=== PATIENT | male | born 1965 | race African-American/Black ===

== ENCOUNTER 2017-09-23 08:48 | Emergency (ER) | payer SELFPAY ==
[2017-09-23] MEDS ORDERED: Adacel (T-DAP) 0.5 ML VIAL ONE (09:01)
[2017-09-23] MEDS ORDERED: Bacitracin Zinc 1 Packet ONE (09:04)
== END 2017-09-23 09:23 | disposition home or self-care (01) ==
LOC: NAV ERS 08:48
DX: S71.112A Laceration without foreign body, left thigh, initial encounter (principal); I10 Essential (primary) hypertension; F17.210 Nicotine dependence, cigarettes, uncomplicated; W45.8XXA Other foreign body or object entering through skin, initial encounter
CPT/HCPCS: 90471; 90715

== ENCOUNTER 2025-11-13 11:43 | Emergency (ER) | payer SELFPAY ==
[~2025-11-13 11:43] MED LIST: Iopamidol 370 76% 100 ML VIAL ONE
[2025-11-13 12:24] LABS: INR-International Normal Ratio 0.9; PTT 23.7 sec (22.9-36.1); Prothrombin Time 12.5 sec (12.0-14.7)
[2025-11-13 12:33] LABS: Troponin I 0.017 ng/mL (< 0.028)
[2025-11-13 12:40] LABS: Bicarbonate (HCO3v) 24.7 mmol/L (22.0-28.0); CO2 Tension (PvCO2) 40.2 mmHg (42.0-51.0); Calcium, Ionized 1.21 mmol/L (1.15-1.33); Chloride 105 mmol/L (98-107); Hemoglobin - Calc 16.6 g/dL (14.0-18.0); Potassium 6.0 mmol/L (3.5-5.1); Sodium 137 mmol/L (138-145); T. Carbon Dioxide 26.0 mmol/L (22.0-28.0); vO2 Saturation-calc 99.0 % (60.0-85.0)
[2025-11-13 12:44] LABS: ALT (SGPT) Less than 7 U/L (Less than 45); AST (SGOT) 14 U/L (11-34); Albumin 3.7 g/dL (3.1-4.5); Alkaline Phosphatase 91 U/L (40-110); Anion Gap 17 mmol/L (10-20); BUN (Urea Nitrogen) 16 mg/dL (8.4-25.7); Bilirubin, Total 0.3 mg/dL (0.3-1.2); CK (CPK) 127 U/L (30-200); Calc. Creatinine Clearance 0 mL/min (70-130); Calcium 9.4 mg/dL (7.8-10.44); Carbon Dioxide 21 mmol/L (23-31); Chloride 104 mmol/L (98-107); Globulin 3.9 g/dL (2.4-3.5); Potassium 4.2 mmol/L (3.5-5.1); Sodium 138 mmol/L (136-145)
[2025-11-13 12:45] LABS: Hematocrit 49.9 % (42.0-52.0); Hemoglobin 16.9 g/dL (14.0-18.0); MDiff Complete? YES; Mean Corpuscular Hemoglobin 28.3 pg (27.0-31.0); Mean Corpuscular Volume 83.5 fl (78.0-98.0); Platelet Count 194 10x3/uL (130-400); Red Blood Cell (RBC) Count 5.97 mill/uL (4.70-6.10); White Blood Cell (WBC) Count 7.4 10x3/uL (4.8-10.8)
[2025-11-13 12:53] LABS: Glucose 442 mg/dL (80-115)
[2025-11-13] MEDS ORDERED: Aspirin Chewable 81 MG TAB ONE (13:27)
[2025-11-13 14:06] LABS: Glucose, Urine (Dipstick) >=1000 mg/dL (Negative); Leukocyte Negative (Negative); Protein, Urine (Dipstick) 30 mg/dL (Neg-Trace); Specific Gravity, Urine 1.010 (1.005-1.030)
[2025-11-13 14:16] LABS: Bacteria/HPF 1+ HPF (None Seen); CAUTI Indications for Culture Alt mental st,lethar; RBC/HPF None Seen HPF (0-3); Yeast-Budding 1+ HPF (None Seen)
[2025-11-13 14:17] LABS: Urine Culture Reflex Yes Yes
== END 2025-11-13 16:03 | disposition short-term general hospital (02) ==
LOC: NAV ERS 11:43
DX: I63.9 Cerebral infarction, unspecified (principal); E11.9 Type 2 diabetes mellitus without complications; R27.0 Ataxia, unspecified; I10 Essential (primary) hypertension; F17.210 Nicotine dependence, cigarettes, uncomplicated; Z86.73 Personal history of transient ischemic attack (TIA), and cerebral infarction without residual deficits
CPT/HCPCS: 36416; 70450; 70496; 70498; 80053; 81001; 82010; 82330; 82550; 82803; 84443; 84484; 85025; 85610; 85730; 87086; 93005; 96374; J1815; J3010